=== PATIENT | male | born 1970 | race Caucasian/White ===

== ENCOUNTER 2020-07-27 10:03 | Emergency (ER) | payer MEDICARE, OTHER | END 2020-07-27 11:02 | disposition home or self-care (01) | LOC: ER1 10:03 | DX: M54.41 Lumbago with sciatica, right side (principal); G89.29 Other chronic pain; I10 Essential (primary) hypertension | CPT/HCPCS: 96372; 99283; J1100; J2270 ==

== ENCOUNTER → 2020-08-11 | Outpatient (CLI) | payer MEDICARE, OTHER | LOC: HEART CORB 10:22 | DX: R00.2 Palpitations (principal) ==

== ENCOUNTER → 2020-09-13 | Outpatient (CLI) | payer MEDICARE, OTHER | LOC: HEART CORB 08:53 | DX: R00.2 Palpitations (principal); I49.3 Ventricular premature depolarization; I34.0 Nonrheumatic mitral (valve) insufficiency | CPT/HCPCS: 93306 ==

== ENCOUNTER 2021-04-04 23:13 | Observation (INO) | payer MEDICARE, OTHER ==
[~2021-04-04] VITALS: Ht 177.8 cm; Wt 117.9 kg
[2021-04-04 23:47] LABS: HEMOGLOBIN 13.1 gm/dl (14.0-17.5); RED BLOOD COUNT 4.69 M/UL (4.20-5.50); WHITE BLOOD COUNT 7.2 K/UL (4.5-11.0)
[2021-04-05 00:25] LABS: BUN/CREATININE RATIO 10 (0-10)
[2021-04-05 06:05] LABS: HEMOGLOBIN 13.7 gm/dl (14.0-17.5); RED BLOOD COUNT 4.89 M/UL (4.20-5.50); WHITE BLOOD COUNT 7.1 K/UL (4.5-11.0)
[2021-04-05] MEDS ORDERED: AMLODIPINE BESY10 MG PO (10:10)
[2021-04-05] MEDS ORDERED: METOPROLOL TART25 MG PO (10:10)
[2021-04-05] MEDS ORDERED: GEMFIBROZIL600 MG PO (10:10)
[2021-04-05] MEDS ORDERED: OMEPRAZOLE20 MG PO (10:10)
[2021-04-05] MEDS ORDERED: TIZANIDINE HCL4 MG PO (10:11)
[2021-04-05] MEDS ORDERED: GABAPENTIN800 MG PO (10:12)
[2021-04-05] MEDS ORDERED: HYDROCODON-ACE1 EAC6 PO (10:12)
[2021-04-05] MEDS ORDERED: ALPRAZOLAM1 MG PO (10:12)
[2021-04-05] MEDS ORDERED: FLECAINIDE ACET50 MG PO (10:13)
[2021-04-05] MEDS ORDERED: VITAMIN D21250 MCG PO (10:13)
[2021-04-05] MEDS ORDERED: IBU800 MG PO (10:13)
[2021-04-05] MEDS ORDERED: ASPIRIN81 MG PO ×2 (10:14→15:26)
[2021-04-05] MEDS ORDERED: LEXAPRO20 MG PO (10:14)
[2021-04-05] MEDS ORDERED: LAMOTRIGINE25 MG PO (10:14)
== END 2021-04-05 16:00 | disposition other institution (70) ==
LOC: ER1 23:13 → CDU 04-05 08:31
PROVIDERS: Emergency Medicine; Physician Assistant; ADMIT Internal Medicine
DX: R00.2 Palpitations (principal); I48.0 Paroxysmal atrial fibrillation; I25.10 Atherosclerotic heart disease of native coronary artery without angina pectoris; I25.2 Old myocardial infarction; I10 Essential (primary) hypertension; F41.9 Anxiety disorder, unspecified; F31.9 Bipolar disorder, unspecified; K21.9 Gastro-esophageal reflux disease without esophagitis; Z20.822 Contact with and (suspected) exposure to COVID-19; Z87.19 Personal history of other diseases of the digestive system; Z98.890 Other specified postprocedural states; Z79.891 Long term (current) use of opiate analgesic; Z79.899 Other long term (current) drug therapy
CPT/HCPCS: 71045; 80048; 80053; 82550; 82553; 83735; 83874; 83880; 84439; 84443; 84484; 85025; 85379; 93005; 93270; 99285; G0378; U0002